=== PATIENT | female | born 1990 | race Caucasian/White ===

== ENCOUNTER 2018-04-28 18:41 | Emergency (ER) | payer OTHER ==
[~2018-04-28] VITALS: Ht 160 cm; Wt 63.5 kg
[~2018-04-28 18:41] MED LIST: ALBUTEROL INH PO; AZITHROMYCIN 2250 MG; CLARITIN10 MG; COUGH SYRUP; MEDROL DOSPAK21 TA1 PO; MEDROXYPROGESTERONE; ZOFRAN4 MG PO
[2018-04-28] MEDS ORDERED: ZOLOFT25 MG PO (18:56)
[2018-04-28 19:58] VITALS: BP 133/81
== END 2018-04-28 19:58 | disposition home or self-care (01) ==
LOC: M.ERS 18:41
DX: S93.691A Other sprain of right foot, initial encounter (principal); S93.401A Sprain of unspecified ligament of right ankle, initial encounter; F17.210 Nicotine dependence, cigarettes, uncomplicated; W19.XXXA Unspecified fall, initial encounter; Y93.01 Activity, walking, marching and hiking; Y92.89 Other specified places as the place of occurrence of the external cause; Y99.8 Other external cause status

== ENCOUNTER 2020-05-31 17:03 | Emergency (ER) | payer OTHER ==
[~2020-05-31] VITALS: Ht 157.5 cm; Wt 56.7 kg
[~2020-05-31 17:03] MED LIST changes: +ZOLOFT25 MG PO
[2020-05-31 17:40] LABS: INFLUENZA A ANTIGEN Negative (Negative); INFLUENZA B ANTIGEN Negative (Negative)
[2020-05-31] MEDS ORDERED: BUTALB-APAP-CA1 EACH PO (19:25)
[2020-05-31] MEDS ORDERED: ZPAK PO (19:25)
[2020-05-31 19:38] VITALS: BP 132/68
== END 2020-05-31 19:38 | disposition home or self-care (01) ==
LOC: M.ERS 17:03
PROVIDERS: Nurse Practitioner Family
DX: J98.8 Other specified respiratory disorders (principal); Z20.828 Contact with and (suspected) exposure to other viral communicable diseases; B34.9 Viral infection, unspecified; Z79.899 Other long term (current) drug therapy